=== PATIENT | female | born 1985 | race Caucasian/White ===

== ENCOUNTER 2018-09-24 15:26 | Outpatient (CLI) | payer OTHER ==
[2018-09-24 16:01] LABS: ADD MAN DIFF? NO
[2018-09-24 16:04] LABS: ADD UMIC NO; BASOPHILS % 0.5 % (0.0-2.0); EOSINOPHILS # 0.1 10^3/ul (0.0-0.5); EOSINOPHILS % 1.2 % (0.0-7.0); HEMATOCRIT 39.3 % (37.0-47.0); HEMOGLOBIN 13.8 g/dl (12.0-16.0); LYMPHOCYTES # 2.2 10^3/ul (0.8-2.9); LYMPHOCYTES % 25.2 % (15.0-51.0); MEAN CORPUSCULAR HEMOGLOBIN 32.5 pg (29.0-33.0); MEAN CORPUSCULAR HGB CONC 35.1 g/dl (32.0-37.0); MEAN CORPUSCULAR VOLUME 92.5 fl (82.0-101.0); MEAN PLATELET VOLUME 11.2 fl (7.4-10.4); MONOCYTE # 0.6 10^3/ul (0.3-0.9); MONOCYTES % 7.2 % (0.0-11.0); NEUTROPHIL # 5.7 10^3/ul (1.6-7.5); NEUTROPHILS % 65.3 % (39.0-77.0); PLATELET COUNT 184 10^3/UL (140-415); RED BLOOD COUNT 4.25 10^6/ul (4.20-5.40); RED CELL DISTRIBUTION WIDTH 12.6 % (11.5-14.5); UR ASCORBIC ACID NEGATIVE (NEGATIVE); UR BILIRUBIN (Dip) NEGATIVE (NEGATIVE); UR BLOOD (Dip) NEGATIVE (NEGATIVE); UR CLARITY CLEAR (CLEAR); UR COLOR YELLOW (YELLOW); UR GLUCOSE (Dip) NEGATIVE (NEGATIVE); UR KETONES (Dip) NEGATIVE (NEGATIVE); UR LEUKOCYTE ESTERASE (Dip) NEGATIVE Leu/ul (NEGATIVE); UR NITRITE (Dip) NEGATIVE (NEGATIVE); UR SPECIFIC GRAVITY (Dip) 1.006 (1.003-1.030); UR TOTAL PROTEIN (Dip) NEGATIVE (NEGATIVE); UR UROBILINOGEN (Dip) NEGATIVE (NEGATIVE)
[2018-09-24 16:04] LABS: WHITE BLOOD COUNT 8.6 10^3/ul (4.8-10.8)
[2018-09-24 16:22] LABS: ALANINE AMINOTRANSFERASE 31 IU/L (13-69); ALBUMIN 3.2 g/dl (3.3-4.9); ALKALINE PHOSPHATASE 131 IU/L (42-121); ANION GAP 10 (5-13); ASPARTATE AMINO TRANSFERASE 31 IU/L (15-46); BILIRUBIN,INDIRECT 0.1 mg/dl (0-1.1); BILIRUBIN,TOTAL 0.1 mg/dl (0.2-1.3); BLOOD UREA NITROGEN 8 mg/dl (7-20); CALCIUM 9.1 mg/dl (8.4-10.2); CARBON DIOXIDE 19 mmol/L (21-31); CHLORIDE 109 mmol/L (97-110); CREATININE 0.46 mg/dl (0.44-1.00); Estimated GFR > 60 mL/min (>60); GLUCOSE 87 mg/dl (70-220); SODIUM 138 mmol/L (135-144); TOTAL PROTEIN 6.1 g/dl (6.1-8.1)
[2018-09-24 16:23] LABS: INR 0.84; PROTIME 11.6 Sec (11.9-14.9); PT RATIO 0.9
[2018-09-24 16:24] LABS: PARTIAL THROMBOPLASTIN TIME 28.1 Sec (23.0-35.0)
[2018-09-24 18:17] LABS: CREATININE,URINE RANDOM 27.09 mg/dl (20-320); PROTEIN/CREAT RATIO 0.55 RATIO
== END 2018-09-24 18:05 | disposition home or self-care (01) ==
LOC: OBT 15:26 → L-D 15:28 → OBT 18:05
DX: O47.1 False labor at or after 37 completed weeks of gestation (principal); O36.8130 Decreased fetal movements, third trimester, not applicable or unspecified; Z3A.37 37 weeks gestation of pregnancy
CPT/HCPCS: 76818; 80053; 81003; 82570; 84560; 85025; 85384; 85610; 85730

== ENCOUNTER 2018-09-26 13:59 | Outpatient (CLI) | payer OTHER | END 2018-09-26 15:40 | disposition home or self-care (01) | LOC: OBT 13:59 → L-D 13:59 → OBT 15:40 | DX: O13.3 Gestational [pregnancy-induced] hypertension without significant proteinuria, third trimester (principal); Z3A.38 38 weeks gestation of pregnancy | CPT/HCPCS: 76818 ==

== ENCOUNTER 2018-09-28 19:10 | Outpatient (CLI) | payer OTHER ==
[2018-09-28 20:12] LABS: COLLECTION PERIOD 24 hrs
[2018-09-28 20:28] LABS: VOLUME 710 mls
[2018-09-28 20:29] LABS: COLLECTION PERIOD 24 hrs; SCRET 0.46 mg/dl (0.44-1.00); VOLUME 710 ml/24hrs
[2018-09-28 20:46] LABS: 24HR URINE TOTAL PROTEIN 92.3 mg/24hrs (42.0-225.0)
[2018-09-28 21:00] LABS: ADD MAN DIFF? NO
[2018-09-28 21:02] LABS: BASOPHILS % 0.3 % (0.0-2.0); EOSINOPHILS # 0.1 10^3/ul (0.0-0.5); EOSINOPHILS % 1.1 % (0.0-7.0); HEMATOCRIT 37.4 % (37.0-47.0); HEMOGLOBIN 13.5 g/dl (12.0-16.0); LYMPHOCYTES # 2.8 10^3/ul (0.8-2.9); LYMPHOCYTES % 27.8 % (15.0-51.0); MEAN CORPUSCULAR HEMOGLOBIN 33.1 pg (29.0-33.0); MEAN CORPUSCULAR HGB CONC 36.1 g/dl (32.0-37.0); MEAN CORPUSCULAR VOLUME 91.7 fl (82.0-101.0); MEAN PLATELET VOLUME 11.8 fl (7.4-10.4); MONOCYTE # 0.8 10^3/ul (0.3-0.9); NEUTROPHIL # 6.2 10^3/ul (1.6-7.5); NEUTROPHILS % 62.3 % (39.0-77.0); PLATELET COUNT 168 10^3/UL (140-415); RED BLOOD COUNT 4.08 10^6/ul (4.20-5.40); RED CELL DISTRIBUTION WIDTH 12.7 % (11.5-14.5)
[2018-09-28 21:20] LABS: ALANINE AMINOTRANSFERASE 16 IU/L (13-69); ALBUMIN 3.1 g/dl (3.3-4.9); ALBUMIN/GLOBULIN RATIO 0.93; ALKALINE PHOSPHATASE 140 IU/L (42-121); ANION GAP 7 (5-13); ASPARTATE AMINO TRANSFERASE 23 IU/L (15-46); BILIRUBIN,INDIRECT 0.2 mg/dl (0-1.1); BILIRUBIN,TOTAL 0.2 mg/dl (0.2-1.3); BLOOD UREA NITROGEN 14 mg/dl (7-20); CALCIUM 9.1 mg/dl (8.4-10.2); CARBON DIOXIDE 21 mmol/L (21-31); CHLORIDE 108 mmol/L (97-110); CREATININE 0.51 mg/dl (0.44-1.00); Estimated GFR > 60 mL/min (>60); GLUCOSE 91 mg/dl (70-220); POTASSIUM 3.8 mmol/L (3.5-5.1); SODIUM 136 mmol/L (135-144); TOTAL PROTEIN 6.4 g/dl (6.1-8.1); URIC ACID 4.4 mg/dl (3.1-7.9)
[2018-09-28 21:24] LABS: PARTIAL THROMBOPLASTIN TIME 28.5 Sec (23.0-35.0); PROTIME 12.3 Sec (11.9-14.9)
[2018-09-28] MEDS: ACETAMINOPHEN 500 MG TAB PO (21:38)
[2018-09-28 22:23] LABS: CREATININE,URINE RANDOM 57.83 mg/dl (20-320)
== END 2018-09-28 22:14 | disposition home or self-care (01) ==
LOC: OBT 19:10 → L-D 19:10 → OBT 22:14
DX: O13.3 Gestational [pregnancy-induced] hypertension without significant proteinuria, third trimester (principal); Z3A.38 38 weeks gestation of pregnancy
CPT/HCPCS: 80053; 82575; 84156; 84560; 85025; 85384; 85610; 85730

== ENCOUNTER 2018-10-01 07:30 | Inpatient (IN) | payer OTHER ==
[2018-10-01] MEDS ORDERED: CARBOPROST 250 MCG INJ IM (08:00)
[2018-10-01] MEDS ORDERED: OXYTOCIN 30 UNITS/LR 500 ML IV ×2 (08:00)
[2018-10-01] MEDS ORDERED: LIDOCAINE 1% (MPF) 30 ML INJ INJ (08:00)
[2018-10-01] MEDS ORDERED: METHYLERGONOVINE 0.2 MG INJ IM (08:00)
[2018-10-01] MEDS ORDERED: MISOPROSTOL 200 MCG TAB PR (08:00)
[2018-10-01] MEDS: LACTATED RINGER'S 1,000 ML IV ×3 (08:09→19:59)
[2018-10-01 08:46] LABS: ADD MAN DIFF? NO
[2018-10-01 08:57] LABS: WHITE BLOOD COUNT 10.5 10^3/ul (4.8-10.8)
[2018-10-01 08:57] LABS: BASOPHILS % 0.3 % (0.0-2.0); EOSINOPHILS # 0.1 10^3/ul (0.0-0.5); EOSINOPHILS % 0.9 % (0.0-7.0); HEMATOCRIT 40.8 % (37.0-47.0); HEMOGLOBIN 14.3 g/dl (12.0-16.0); LYMPHOCYTES # 2.4 10^3/ul (0.8-2.9); LYMPHOCYTES % 22.5 % (15.0-51.0); MEAN CORPUSCULAR HEMOGLOBIN 32.5 pg (29.0-33.0); MEAN CORPUSCULAR VOLUME 92.7 fl (82.0-101.0); MEAN PLATELET VOLUME 12.1 fl (7.4-10.4); MONOCYTE # 0.6 10^3/ul (0.3-0.9); NEUTROPHIL # 7.4 10^3/ul (1.6-7.5); NEUTROPHILS % 69.8 % (39.0-77.0); PLATELET COUNT 176 10^3/UL (140-415); RED CELL DISTRIBUTION WIDTH 12.8 % (11.5-14.5)
[2018-10-01 09:01] LABS: ADD UMIC YES; UR ASCORBIC ACID NEGATIVE (NEGATIVE); UR BACTERIA FEW /HPF (NONE SEEN); UR BILIRUBIN (Dip) NEGATIVE (NEGATIVE); UR BLOOD (Dip) NEGATIVE (NEGATIVE); UR CLARITY SLIGHTLY CLOUDY (CLEAR); UR COLOR YELLOW (YELLOW); UR GLUCOSE (Dip) NEGATIVE (NEGATIVE); UR KETONES (Dip) NEGATIVE (NEGATIVE); UR LEUKOCYTE ESTERASE (Dip) 1+ Leu/ul (NEGATIVE); UR MUCUS FEW /HPF (NONE SEEN); UR NITRITE (Dip) NEGATIVE (NEGATIVE); UR RBC 0 /HPF (0-5); UR SPECIFIC GRAVITY (Dip) 1.018 (1.003-1.030); UR SQUAMOUS EPITHELIAL CELL FEW /HPF (FEW); UR TOTAL PROTEIN (Dip) NEGATIVE (NEGATIVE); UR UROBILINOGEN (Dip) NEGATIVE (NEGATIVE); UR WBC 4 /HPF (0-5)
[2018-10-01 09:18] LABS: INR 0.84; PARTIAL THROMBOPLASTIN TIME 27.5 Sec (23.0-35.0); PROTIME 11.6 Sec (11.9-14.9); PT RATIO 0.9
[2018-10-01 09:21] LABS: ALANINE AMINOTRANSFERASE 20 IU/L (13-69); ALBUMIN 3.1 g/dl (3.3-4.9); ALKALINE PHOSPHATASE 151 IU/L (42-121); ANION GAP 7 (5-13); ASPARTATE AMINO TRANSFERASE 23 IU/L (15-46); BILIRUBIN,INDIRECT 0.2 mg/dl (0-1.1); BILIRUBIN,TOTAL 0.2 mg/dl (0.2-1.3); BLOOD UREA NITROGEN 9 mg/dl (7-20); CALCIUM 9.1 mg/dl (8.4-10.2); CARBON DIOXIDE 19 mmol/L (21-31); CHLORIDE 111 mmol/L (97-110); CREATININE 0.51 mg/dl (0.44-1.00); Estimated GFR > 60 mL/min (>60); GLUCOSE 125 mg/dl (70-220); POTASSIUM 4.1 mmol/L (3.5-5.1); SODIUM 137 mmol/L (135-144); TOTAL PROTEIN 5.9 g/dl (6.1-8.1)
[2018-10-01] MEDS: AMPICILLIN 2 GM/NS (PMX) 100 ML IV (09:27)
[2018-10-01] MEDS: AMPICILLIN 1 GM/NS (PMX) 50 ML IV ×3 (12:00→20:00)
[2018-10-01] MEDS: OXYTOCIN 30 UNITS/LR 500 ML IV (12:04)
[2018-10-01 15:59] LABS: HEPATITIS B SURFACE ANTIGEN NEGATIVE (NEGATIVE)
[2018-10-01] MEDS: MISOPROSTOL 50 MCG CAPSULE PO (22:53)
[2018-10-01 23:24] LABS: RAPID PLASMA REAGIN NONREACTIVE (NR)
[2018-10-02] MEDS: MISOPROSTOL 50 MCG CAPSULE PO ×3 (03:22→09:00)
[2018-10-02] MEDS: LACTATED RINGER'S 1,000 ML IV ×3 (04:32→23:56)
[2018-10-02] MEDS ORDERED: OXYTOCIN 30 UNITS/LR 500 ML IV ×2 (09:30→15:30)
[2018-10-02] MEDS: OXYTOCIN 30 UNITS/LR 500 ML IV ×4 (09:47→20:12)
[2018-10-02] MEDS: BUTORPHANOL 2 MG INJ IV (10:59)
[2018-10-02] MEDS ORDERED: FENTAnyl 2MCG/ML-ROPIV 0.2% 100 ML BAG EPI (12:30)
[2018-10-02] MEDS ORDERED: NALOXONE (0.4 MG/ML) INJ IV (12:30)
[2018-10-02] MEDS ORDERED: MIDAZOLAM 1 MG/ML 2 ML INJ ×2 (14:36)
[2018-10-02] MEDS ORDERED: LIDOCAINE 2% (SDV) 5 ML INJ (14:49)
[2018-10-02] MEDS ORDERED: SUCCINYLCHOLINE CHLORIDE 100 MG/5 ML SYG IV (14:49)
[2018-10-02] MEDS ORDERED: PROPOFOL 0 ML (14:49)
[2018-10-02] MEDS: LACTATED RINGER'S 1,000 ML IV* ×2 (15:21→23:21)
[2018-10-02] MEDS ORDERED: ONDANSETRON 4 MG INJ IV (15:30)
[2018-10-02] MEDS ORDERED: CARBOPROST 250 MCG INJ IM (15:30)
[2018-10-02] MEDS ORDERED: HYDROCODONE/APAP (5/325) TAB PO (15:30)
[2018-10-02] MEDS ORDERED: ZOLPIDEM 5 MG TAB PO (15:30)
[2018-10-02] MEDS ORDERED: MISOPROSTOL 200 MCG TAB PR (15:30)
[2018-10-02] MEDS ORDERED: DIPHENHYDRAMINE 25 MG CAP PO (15:30)
[2018-10-02] MEDS ORDERED: METHYLERGONOVINE 0.2 MG TAB PO (15:30)
[2018-10-02] MEDS ORDERED: NA PHOSPHATE/BIPHOS 133 ML ENEMA PR (15:30)
[2018-10-02] MEDS ORDERED: BENZOCAINE 20% 56 ML SPRAY TOP (15:30)
[2018-10-02] MEDS ORDERED: METHYLERGONOVINE 0.2 MG INJ IM (15:30)
[2018-10-02] MEDS: IBUPROFEN 600 MG TAB PO ×2 (17:36→23:51)
[2018-10-02] MEDS: WITCH HAZEL/GLYCERIN PAD PR (20:15)
[2018-10-02] MEDS: SENNA/DOCUSATE NA (8.6MG/50MG) TAB PO (20:15)
[2018-10-02] MEDS: LANOLIN HPA 1 PKT TOP (20:17)
[2018-10-03] MEDS: HYDROCODONE/APAP (5/325) TAB PO (03:03)
[2018-10-03 07:46] LABS: ADD MAN DIFF? NO
[2018-10-03 07:52] LABS: WHITE BLOOD COUNT 14.4 10^3/ul (4.8-10.8)
[2018-10-03 07:52] LABS: BASOPHILS % 0.3 % (0.0-2.0); EOSINOPHILS # 0.1 10^3/ul (0.0-0.5); EOSINOPHILS % 0.4 % (0.0-7.0); LYMPHOCYTES % 20.5 % (15.0-51.0); MEAN CORPUSCULAR HEMOGLOBIN 32.7 pg (29.0-33.0); MEAN CORPUSCULAR HGB CONC 34.5 g/dl (32.0-37.0); MEAN CORPUSCULAR VOLUME 94.8 fl (82.0-101.0); MEAN PLATELET VOLUME 11.9 fl (7.4-10.4); MONOCYTE # 1.1 10^3/ul (0.3-0.9); MONOCYTES % 7.5 % (0.0-11.0); NEUTROPHIL # 10.1 10^3/ul (1.6-7.5); NEUTROPHILS % 70.7 % (39.0-77.0); PLATELET COUNT 132 10^3/UL (140-415); RED BLOOD COUNT 3.06 10^6/ul (4.20-5.40); RED CELL DISTRIBUTION WIDTH 13.1 % (11.5-14.5)
[2018-10-03] MEDS: SENNA/DOCUSATE NA (8.6MG/50MG) TAB PO ×2 (09:10→21:29)
[2018-10-03] MEDS: IBUPROFEN 600 MG TAB PO ×3 (12:12→23:41)
[2018-10-03] MEDS: MAGNESIUM HYDROXIDE 30ML CUP PO ×2 (12:12→21:29)
[2018-10-03] MEDS: BISACODYL 10 MG SUPP PR (21:29)
[2018-10-04] MEDS: IBUPROFEN 600 MG TAB PO (05:38)
[2018-10-04] MEDS: SENNA/DOCUSATE NA (8.6MG/50MG) TAB PO (09:00)
[2018-10-04] MEDS: DIPHTH/TET/ACEL PERTUSS (ADULT) 0.5 ML VIAL IM* (09:38)
[2018-10-04] MEDS: MEASLES,MUMPS,RUBELLA VACCINE INJ SC* (09:39)
[2018-10-04] MEDS: VARICELLA VACCINE LIVE/PF 1,350 UNIT/0.5 ML ML SC* (09:39)
== END 2018-10-04 16:30 | disposition home or self-care (01) | DRG 807 ==
LOC: L-D 10-02 14:44 → PP1 10-02 18:51 → L-D 09:20
PROC: 10E0XZZ Delivery of Products of Conception, External Approach (ICD-10-PCS; principal; 2018-10-02)
PROC: 10D17Z9 Manual Extraction of Products of Conception, Retained, Via Natural or Artificial Opening (ICD-10-PCS; 2018-10-02)
PROC: 0W8NXZZ Division of Female Perineum, External Approach (ICD-10-PCS; 2018-10-02)
PROC: 10907ZC Drainage of Amniotic Fluid, Therapeutic from Products of Conception, Via Natural or Artificial Opening (ICD-10-PCS; 2018-10-02)
PROC: 10H07YZ Insertion of Other Device into Products of Conception, Via Natural or Artificial Opening (ICD-10-PCS; 2018-10-02)
PROC: 4A1H7CZ Monitoring of Products of Conception, Cardiac Rate, Via Natural or Artificial Opening (ICD-10-PCS; 2018-10-02)
DX: O73.1 Retained portions of placenta and membranes, without hemorrhage (principal); Z37.0 Single live birth; O99.344 Other mental disorders complicating childbirth; F32.9 Major depressive disorder, single episode, unspecified; O99.02 Anemia complicating childbirth; D50.9 Iron deficiency anemia, unspecified; Z3A.39 39 weeks gestation of pregnancy
CPT/HCPCS: 62319; 76815; 80053; 81001; 84560; 85025; 85610; 85730; 86592; 86850; 86900; 86901; 87340; 88307; 90716